=== PATIENT | female | born 2000 | race Two or more races ===

== ENCOUNTER 2024-08-07 17:01 | Emergency (ER) | payer MEDICAID, SELFPAY ==
[2024-08-07 17:02] VITALS: PULSE 96; RESP 16; O2SAT 99; BMI 22.8
[2024-08-07 17:03] VITALS: BP 127/83; PULSE 103; RESP 12; TEMP 38; O2SAT 99
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
[2024-08-07] MEDS: IBUPROFEN TAB 400 MG TABLET 800 MG PO (18:23)
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
== END 2024-08-07 19:29 | disposition home or self-care (01) ==
PROVIDERS: Emergency Provider Emergency Medicine; PCP Physician Assistant
DX: S20.211A Contusion of right front wall of thorax, initial encounter (principal); S10.93XA Contusion of unspecified part of neck, initial encounter; V49.50XA Passenger injured in collision with unspecified motor vehicles in traffic accident, initial encounter
CPT/HCPCS: 71111; 72040; 99283; A9270